=== PATIENT | male | born 1990 | race African-American/Black ===

== ENCOUNTER 2017-06-16 00:30 | Observation (INO) | payer SELFPAY ==
[~2017-06-16] VITALS: Ht 182.9 cm; Wt 94.5 kg
[2017-06-16 00:43] LABS: BASOPHILS 0.2 % (0-2); EOSINOPHILS 0.7 % (0-7); HEMATOCRIT 44.4 % (42.0-54.0); HEMOGLOBIN 15.3 g/dL (13.5-17.5); IMMATURE GRANULOCYTES 0.2 % (0-5); LYMPHOCYTES 32.2 % (15-50); MCH 30.1 pg (26.0-34.0); MCHC 34.5 g/dL (31.0-37.0); MCV 87.4 fL (80.0-100.0); MEAN PLATELET VOLUME 10.9 fL (7.4-10.4); MONOCYTES 4.9 % (2-11); NEUTROPHILS 61.8 % (40-80); PLATELET COUNT 318 10x3/uL (130-400); RBC 5.08 10x6/uL (4.20-6.10); RDW 12.3 % (11.5-14.5); WBC 12.2 10x3/uL (4.8-10.8)
[2017-06-16 01:02] LABS: ALBUMIN 4.4 g/dL (3.4-5.0); ALKALINE PHOSPHATASE 39 U/L (46-116); ALT (SGPT) 74 U/L (10-68); CALC OSMOLALITY 285 mosm/kg (275-300); CALCIUM 9.1 mg/dL (8.5-10.1); CARBON DIOXIDE 20.1 mmol/L (21.0-32.0); CHLORIDE - SERUM 102 mmol/L (98-107); CREATININE - SERUM 1.3 mg/dL (0.6-1.3); GLUCOSE 134 mg/dL (74-106); SODIUM 141 mmol/L (136-145); UREA NITROGEN 22 mg/dL (7-18); eGFR NON AFRICAN AMERICAN 71 mL/min (90-120)
[2017-06-16 01:19] LABS: CREATINE KINASE 724 UL (21-232)
[2017-06-16 01:21] LABS: VALPROIC ACID (DEPAKOTE) 0.9 ug/mL (50.0-100.0)
[2017-06-16 01:23] LABS: CKMB 5.9 U/L (0.0-3.6)
[2017-06-16 02:06] LABS: APPEARANCE CLEAR (CLEAR); BILIRUBIN NEGATIVE (NEGATIVE); COLOR YELLOW (YELLOW); GLUCOSE NEGATIVE (NEGATIVE); KETONE NEGATIVE (NEGATIVE); NITRITE NEGATIVE (NEGATIVE); PROTEIN NEGATIVE (NEGATIVE); SPECIFIC GRAVITY 1.015 (1.005-1.020); UROBILINOGEN NORMAL (NORMAL)
[2017-06-16 02:13] LABS: UDS - AMPHET NEGATIVE QUAL (NEGATIVE); UDS - BARB NEGATIVE QUAL (NEGATIVE); UDS - BENZO NEGATIVE QUAL (NEGATIVE); UDS - COCAINE NEGATIVE QUAL (NEGATIVE); UDS - OPIATE NEGATIVE QUAL (NEGATIVE); UDS - PCP NEGATIVE QUAL (NEGATIVE); UDS - THC NEGATIVE QUAL (NEGATIVE)
[2017-06-16] MEDS ORDERED: OMEPRAZOLE20 M1 PO (05:13)
[2017-06-16] MEDS ORDERED: IBUPROFEN800 MG PO (05:14)
[2017-06-16] MEDS ORDERED: MULTIPLE VITAMI1 TA1 PO (05:16)
[2017-06-16 05:47] VITALS: BP 126/73; Ht 182.9 cm; Wt 94.5 kg
--- NOTE | 2017-06-16 06:56 | NUR ---
PATIENT STATED HE STOPPED TAKING HIS DEPAKOTE IN OCTOBER. HE DOES NOT RECALL WHAT DOSE OF THE MEDICATION HE WAS TAKING.
[2017-06-16 08:33] VITALS: BP 130/59
--- NOTE | 2017-06-16 09:47 | NUR ---
PT AOX4 RESP EVEN AND NONLABORED PT DENIES NEEDS AT THIS TIME IV TO RIGHT UPPER ARM PATENT AND INTACT AT THIS TIME SRX2 BED AT LOWEST SETTING CALL LIGHT WITHIN REACH WILL CONTINUE TO MONITOR
[2017-06-16] MEDS ORDERED: KEPPRA500 MG PO (11:07)
[2017-06-16 12:16] VITALS: BP 121/59
[2017-06-16 16:41] VITALS: BP 110/51
--- NOTE | 2017-06-16 18:07 | NUR ---
NEURO STATUS STABLE AT THIS TIME 2 IV'S DISCONTINUED WITH CATHETERS INTACT AT THIS TIME PT GIVEN DISCHARGE INSTRUCTIONS AT THIS TIME. PT VERBALIZES UNDERSTANDING. PT INSTRUCTED NOT TO DRIVE UNTIL DR. CARDENAS. PT TAKEN VIA WHEELCHAIR VIA PRIVATE VEHICLE AT THIS TIME
== END 2017-06-16 18:13 | disposition home or self-care (01) ==
LOC: D.ER 00:30 → D.MS 04:06 → OBSVTIME 04:06 → D.MS 04:06
PROVIDERS: Family Medicine; ADMIT Family Medicine
DX: F10.129 Alcohol abuse with intoxication, unspecified (principal); Y90.3 Blood alcohol level of 60-79 mg/100 ml